=== PATIENT | female | born 1970 | race Caucasian/White ===

== ENCOUNTER 2016-11-16 13:03 | Emergency (ER) | payer OTHER ==
[~2016-11-16] VITALS: Ht 162.5 cm; Wt 68.0 kg
[~2016-11-16 13:03] MED LIST: ALDACTONE25 MG PO; AMOXICILLIN500 MG PO; ANAPROX DS550 MG PO; ASPIRIN ADULT L81 M1 PO; CIPRO500 MG PO; CIPROFLOXACIN500 MG PO; CLARITIN10 MG PO; CLEOCIN150 MG PO; CLINDAMYCIN HC300 MG PO; CLINDAMYCIN150 MG PO; CLOPIDOGREL75 MG PO; DARVOCET N 1001 TAB PO; FLAGYL500 MG PO; FLEXERIL10 MG PO; GABAPENTIN100 M2 PO; GABAPENTIN100 MG PO; HYDROCODONE BIT1 T11 PO; IBU-8800 MG PO; LIDEX0.05% T; LISINOPRIL20 MG PO; Lopressor25 MG PO; MACROBID100 M1 PO; MEDROL DOSEPAK4 MG PO; METOPROLOL SUCC25 M2 PO; MOTRIN400 MG PO; MOTRIN800 MG PO; NAPROSYN500 MG PO; NEURONTIN300 MG PO; NORFLEX100 MG PO; OMEGA-3100 MG PO; OXYCODONE5 M1 PO; PENICILLIN VK500 MG PO; PEPCID20 MG PO; PHENERGAN25 M1 PO; PREDNICOT20 MG PO; PREMARIN PO; PRILOSEC20 M1 PO; PRILOSEC40 M1 PO; PROTONIX40 MG PO; Peridex 473 ML473 ML PO; SEPTRA DS 800 M1 TAB PO; TOPROL XL100 MG PO; TORADOL10 MG PO; TRAMADOL HCL50 MG PO; TRIMOX500 MG PO; ULTRAM50 MG PO; VALIUM10 MG PO; VALIUM5 MG PO; VIBRAMYCIN100 MG PO; VICODIN 5/500 505 MG PO; VICODIN 500 MG-1 TAB PO; XANAX0.25 MG PO; ZOFRAN ODT4 MG SL; ZOFRAN4 MG PO
[2016-11-16] MEDS ORDERED: HYDROCODONE BIT1 T11 PO (13:20)
[2016-11-16] MEDS ORDERED: CYCLOBENZAPRINE10 MG PO (13:26)
[2016-11-16] MEDS ORDERED: MEDROL DOSEPAK4 MG PO (13:26)
[2016-11-16 14:24] VITALS: BP 129/93
== END 2016-11-16 15:02 | disposition home or self-care (01) ==
LOC: ED 13:03
DX: S29.011A Strain of muscle and tendon of front wall of thorax, initial encounter (principal); F17.200 Nicotine dependence, unspecified, uncomplicated; Z98.51 Tubal ligation status; Z90.710 Acquired absence of both cervix and uterus; Z79.899 Other long term (current) drug therapy; Z79.82 Long term (current) use of aspirin; Z88.8 Allergy status to other drugs, medicaments and biological substances; Z88.2 Allergy status to sulfonamides; X58.XXXA Exposure to other specified factors, initial encounter; Y93.89 Activity, other specified; Y92.89 Other specified places as the place of occurrence of the external cause; Y99.9 Unspecified external cause status

== ENCOUNTER 2016-11-21 00:45 | Emergency (ER) | payer OTHER ==
[~2016-11-21] VITALS: Ht 162.5 cm; Wt 59.0 kg
[~2016-11-21 00:45] MED LIST changes: +CYCLOBENZAPRINE10 MG PO
[2016-11-21 01:11] LABS: BASO # 0.1 10*3/uL (0.0-0.1); BASO % 0.5 % (0.0-1.0); EOS # 0.1 10*3/uL (0.0-0.4); EOS % 1.2 % (1.0-4.0); HEMATOCRIT 38.6 % (37.0-47.0); HEMOGLOBIN 12.8 g/dl (12.0-16.0); LYMPH % 17.8 % (27.0-41.0); MEAN CORPUSCULAR HGB 29.8 pg (27.0-31.0); MEAN CORPUSCULAR HGB CONC 33.2 g/dl (33.0-37.0); MONO # 0.7 10*3/uL (0.1-1.0); MONO % 6.2 % (3.0-9.0); NEUT # 8.3 10*3/uL (2.3-7.9); NEUT % 73.9 % (47.0-73.0); PLATELET COUNT AUTOMATED 282 10*3/uL (130-400); RED BLOOD COUNT 4.29 10*6/uL (4.10-5.10); RED CELL DISTRI WIDTH 14.5 % (0-14.5); WHITE BLOOD COUNT 11.2 10*3/uL (4.8-10.8)
[2016-11-21 01:21] LABS: PROTHROMBIN TIME 10.3 SECONDS (9.0-12.4)
[2016-11-21 01:27] LABS: ALBUMIN 3.8 gm/dl (3.1-4.5); ALKALINE PHOSPHATASE 73 U/L (45-117); B-hCG (QUALITATIVE) NEGATIVE (NEGATIVE); BILIRUBIN, TOTAL 0.3 mg/dl (0.2-1.0); BUN 17 mg/dl (7-24); CARBON DIOXIDE 28 mmol/L (21-32); CHLORIDE 101 mmol/L (98-107); CKMB 2.4 ng/ml (0.5-3.6); CPK 134 U/L (26-192); EST GLOM FILT AFRICAN AMERICAN 33 ml/min; GLUCOSE 104 mg/dL (65-99); POTASSIUM 3.8 mmol/L (3.5-5.1); SGOT/AST 18 IU/L (3-35); SGPT/ALT 20 U/L (12-78); SODIUM 137 mmol/L (136-145); TOTAL PROTEIN 8.2 gm/dL (6.4-8.2); TROPONIN I < 0.015 ng/ml (<0.045)
[2016-11-21 01:30] VITALS: BP 128/89
[2016-11-21 01:30] LABS: BILIRUBIN 1+ (NEGATIVE); BLOOD TRACE-INTACT (NEGATIVE); CLARITY SL CLOUDY (CLEAR); COLOR YELLOW (YELLOW); GLUCOSE NEGATIVE (NEGATIVE); KETONE TRACE (NEGATIVE); LEUKO ESTERASE TRACE (NEGATIVE); NITRITE NEGATIVE (NEGATIVE); PH 5.5 (5.0-9.0); PROTEIN 2+ (NEGATIVE); SPECIFIC GRAVITY 1.025 (1.005-1.030)
[2016-11-21 01:39] LABS: BACTERIA TRACE; EPITHELIAL CELLS 35-40
== END 2016-11-21 02:25 | disposition home or self-care (01) ==
LOC: ED 00:45
PROVIDERS: Emergency Medicine
DX: T50.901A Poisoning by unspecified drugs, medicaments and biological substances, accidental (unintentional), initial encounter (principal); R55 Syncope and collapse; I21.4 Non-ST elevation (NSTEMI) myocardial infarction; Z79.82 Long term (current) use of aspirin; Z88.2 Allergy status to sulfonamides; Z88.8 Allergy status to other drugs, medicaments and biological substances; Y92.9 Unspecified place or not applicable

== ENCOUNTER 2017-01-14 12:36 | Inpatient (IN) | payer OTHER ==
[~2017-01-14] VITALS: Ht 162.5 cm; Wt 64.9 kg
--- NOTE | ~2017-01-14 | EKG ---
[place], [place] ELECTROCARDIOGRAM REPORT NAME: BRENNA SOLANO UNIT #: [id number] ROOM: 511 DOCTOR: MICHAEL TAY MD BIRTHDATE: [birth year] DOS: 01/14/2017 ____ FINDINGS: 1. Normal sinus rhythm. 2. Normal axis. 3. Normal intervals. 4. Nonspecific ST-T wave changes. MICHAEL TAY MD CM:EKGRPT:ELECTROCARDIOGRAM REPORT [id number] MICHAEL TAY MD
[2017-01-14 12:49] VITALS: BP 139/101
[2017-01-14 13:07] VITALS: BP 171/98
[2017-01-14 13:26] LABS: BASO # 0.1 10*3/uL (0.0-0.1); BASO % 0.8 % (0.0-1.0); EOS # 0.1 10*3/uL (0.0-0.4); HEMOGLOBIN 14.6 g/dl (12.0-16.0); LYMPH # 3.2 10*3/uL (1.3-4.4); LYMPH % 35.4 % (27.0-41.0); MEAN CORPUSCULAR HGB 30.2 pg (27.0-31.0); MONO # 0.3 10*3/uL (0.1-1.0); MONO % 3.5 % (3.0-9.0); NEUT # 5.3 10*3/uL (2.3-7.9); PLATELET COUNT AUTOMATED 297 10*3/uL (130-400); RED BLOOD COUNT 4.83 10*6/uL (4.10-5.10); RED CELL DISTRI WIDTH 13.7 % (0-14.5); WHITE BLOOD COUNT 8.9 10*3/uL (4.8-10.8)
[2017-01-14] MEDS ORDERED: VALIUM10 MG PO (13:31)
[2017-01-14 13:35] LABS: PROTHROMBIN TIME 10.1 SECONDS (9.0-12.4)
[2017-01-14 13:44] LABS: ALKALINE PHOSPHATASE 77 U/L (45-117); BILIRUBIN, TOTAL 0.3 mg/dl (0.2-1.0); BUN 9 mg/dl (7-24); CARBON DIOXIDE 25 mmol/L (21-32); CHLORIDE 108 mmol/L (98-107); CPK 37 U/L (26-192); EST GLOM FILT AFRICAN AMERICAN > 60 ml/min; GLUCOSE 89 mg/dL (65-99); MAGNESIUM 2.1 mg/dL (1.5-2.1); POTASSIUM 3.8 mmol/L (3.5-5.1); SGOT/AST 14 IU/L (3-35); SGPT/ALT 19 U/L (12-78); SODIUM 142 mmol/L (136-145); TOTAL PROTEIN 8.4 gm/dL (6.4-8.2)
[2017-01-14 13:53] LABS: CKMB < 0.5 ng/ml (0.5-3.6); TROPONIN I < 0.015 ng/ml (<0.045)
[2017-01-14 15:33] VITALS: BP 132/70
[2017-01-14 17:12] VITALS: BP 125/84
[2017-01-14] MEDS ORDERED: Lopressor25 MG PO (17:33)
[2017-01-14 19:22] LABS: CPK 31 U/L (26-192)
[2017-01-14 19:25] LABS: CKMB < 0.5 ng/ml (0.5-3.6); TROPONIN I < 0.015 ng/ml (<0.045)
== END 2017-01-14 19:33 | disposition left against medical advice (07) | DRG 391 ==
LOC: ED 12:36 → EDHOLD 16:25 → 5E 16:46
PROVIDERS: Internal Medicine Hospice and Palliative Medicine; Registered Nurse
DX: K21.9 Gastro-esophageal reflux disease without esophagitis (principal); I21.3 ST elevation (STEMI) myocardial infarction of unspecified site; R09.1 Pleurisy; R07.89 Other chest pain; G62.9 Polyneuropathy, unspecified; F32.9 Major depressive disorder, single episode, unspecified; I25.2 Old myocardial infarction; I25.10 Atherosclerotic heart disease of native coronary artery without angina pectoris; F41.1 Generalized anxiety disorder; G89.29 Other chronic pain; F17.210 Nicotine dependence, cigarettes, uncomplicated; Z53.21 Procedure and treatment not carried out due to patient leaving prior to being seen by health care provider; M54.2 Cervicalgia; R45.1 Restlessness and agitation; Z71.6 Tobacco abuse counseling; Z90.710 Acquired absence of both cervix and uterus; Z98.51 Tubal ligation status; Z88.2 Allergy status to sulfonamides; Z95.5 Presence of coronary angioplasty implant and graft; Z88.1 Allergy status to other antibiotic agents; Z88.8 Allergy status to other drugs, medicaments and biological substances

== ENCOUNTER → 2017-01-14 | Outpatient (CLI) | payer OTHER ==
[2017-01-14 10:18] LABS: BASO # 0.1 10*3/uL (0.0-0.1); BASO % 0.6 % (0.0-1.0); EOS # 0.2 10*3/uL (0.0-0.4); EOS % 1.6 % (1.0-4.0); HEMATOCRIT 44.9 % (37.0-47.0); LYMPH # 2.8 10*3/uL (1.3-4.4); LYMPH % 28.8 % (27.0-41.0); MEAN CELL VOLUME 90.7 fl (81.0-99.0); MEAN CORPUSCULAR HGB 30.3 pg (27.0-31.0); MEAN CORPUSCULAR HGB CONC 33.4 g/dl (33.0-37.0); MEAN PLATELET VOLUME 10.6 fl (9.6-12.3); MONO # 0.4 10*3/uL (0.1-1.0); MONO % 3.8 % (3.0-9.0); NEUT # 6.3 10*3/uL (2.3-7.9); NEUT % 64.8 % (47.0-73.0); PLATELET COUNT AUTOMATED 321 10*3/uL (130-400); RED BLOOD COUNT 4.95 10*6/uL (4.10-5.10); RED CELL DISTRI WIDTH 13.9 % (0-14.5); WHITE BLOOD COUNT 9.7 10*3/uL (4.8-10.8)
[2017-01-14 10:43] LABS: BUN 11 mg/dl (7-24); EST GLOM FILT AFRICAN AMERICAN > 60 ml/min; GLUCOSE 99 mg/dL (65-99)
[2017-01-14 10:44] LABS: ALBUMIN 3.9 gm/dl (3.1-4.5); ALKALINE PHOSPHATASE 86 U/L (45-117); BILIRUBIN, TOTAL 0.3 mg/dl (0.2-1.0); CARBON DIOXIDE 26 mmol/L (21-32); CHLORIDE 105 mmol/L (98-107); CHOLESTEROL 248 mg/dL (<200); HDL CHOLESTEROL 40 mg/dl (40-60); LDL CHOLESTEROL 166 mg/dL (9-159); POTASSIUM 4.6 mmol/L (3.5-5.1); SGOT/AST 15 IU/L (3-35); SGPT/ALT 20 U/L (12-78); SODIUM 139 mmol/L (136-145); TRIGLYCERIDES 209 mg/dl (<150); VLDL CHOLESTEROL 42 mg/dL (6-40)
[2017-01-14 10:50] LABS: THYROID STIM HORMONE (HS) 0.495 uIU/ml (0.358-4.75)
[2017-01-15 16:11] LABS: CK-BB 0 % (0); CK-MB 0 % (0-3); CK-MM 100 % (97-100)
== END | disposition home or self-care (01) ==
LOC: LAB 09:39
PROVIDERS: Internal Medicine
DX: G40.909 Epilepsy, unspecified, not intractable, without status epilepticus (principal); K70.30 Alcoholic cirrhosis of liver without ascites; I25.84 Coronary atherosclerosis due to calcified coronary lesion; I10 Essential (primary) hypertension

== ENCOUNTER 2017-02-08 20:50 | Inpatient (IN) | payer OTHER ==
[~2017-02-08] VITALS: Ht 162.6 cm; Wt 67.3 kg
--- NOTE | ~2017-02-08 | ST ---
[place], [place] EXERCISE STRESS TEST REPORT NAME: BRENNA SOLANO UNIT #: [id number] ROOM: 408 DOCTOR: AUGUSTIN CABRERA [facility] BIRTHDATE: [birth year] DOS: 02/09/2017 Received Lexiscan 0.4 mg at 10 seconds. Isotope was injected. Heart rate is 70. No conclusive electrocardiographic changes for myocardial ischemia noted. No complications noted. Myocardial perfusion scan to follow. INDER RUFFIN MD CM:STRESS:EXERCISE STRESS TEST REPORT 0705 0813 KARYN ALLAN MD [facility]
--- NOTE | ~2017-02-08 | CON ---
[place], [place] REPORT OF CONSULTATION NAME: BRENNA SOLANO UNIT #: [id number] ROOM: 408 DOCTOR: INDER RUFFIN MD, FACC BIRTHDATE: [birth year] DOS: 02/09/2017 HISTORY OF PRESENT ILLNESS: The patient came in with progressive chest discomfort, history of coronary artery disease, coronary intervention few times within the last couple of years, last one was in last 03/2016. The patient smokes more than a pack a day, the patient has had 2 stents in. The patient has a history of myocardial infarction in the past and the patient had a history of stress test in the past. The patient has history of hypertension. No syncope or presyncope. History of chronic smoking. The patient also has depression, on Prozac, also on Ultram, Librax, inhalers. ALLERGIES: IODINE, SULFA, SHELLFISH. SOCIAL HISTORY: No alcohol intake, no drugs. REVIEW OF SYSTEMS: HEENT: Unremarkable. CARDIOPULMONARY: As described. GASTROINTESTINAL: Unremarkable. GENITOURINARY: Unremarkable. NEUROLOGICAL: History of depression and extremely anxious. PHYSICAL EXAMINATION: VITAL SIGNS: Blood pressure 130/80, heart rate is 70. NECK: No jugular venous distention. No carotid bruits. LUNGS: No rales. Diminished breath sounds in base bibasilar rhonchi. HEART: S1, S2 regular. No gallops. EXTREMITIES: No cyanosis. ABDOMEN: Soft. SKIN: Warm and dry. NECK: Supple. NEUROLOGICAL: No focal neurological deficit noted. LABORATORY DATA: EKG sinus rhythm. No acute changes noted. Poor R-wave progress in the precordial leads. ASSESSMENT AND PLAN: The patient underwent Lexiscan with Cardiolite to evaluate for ischemic heart disease and myocardial perfusion scan is pending. If it is abnormal, may consider coronary arteriography, possible revascularization. If it is unremarkable, we will continue with the conservative medical therapy. [place], [place] REPORT OF CONSULTATION NAME: BRENNA SOLANO UNIT #: [id number] ROOM: 408 DOCTOR: INDER RUFFIN MD, FACC BIRTHDATE: [birth year] INDER RUFFIN MD CM:CONSTR:REPORT OF CONSULTATION 0708 02/09/17 1056 interface
[2017-02-08 20:58] VITALS: BP 175/136; BP 175/81
[2017-02-08 21:06] LABS: BASO # 0.1 10*3/uL (0.0-0.1); EOS # 0.3 10*3/uL (0.0-0.4); EOS % 2.5 % (1.0-4.0); HEMATOCRIT 41.7 % (37.0-47.0); HEMOGLOBIN 14.5 g/dl (12.0-16.0); LYMPH # 3.7 10*3/uL (1.3-4.4); LYMPH % 35.6 % (27.0-41.0); MEAN CELL VOLUME 88.2 fl (81.0-99.0); MEAN CORPUSCULAR HGB 30.7 pg (27.0-31.0); MEAN CORPUSCULAR HGB CONC 34.8 g/dl (33.0-37.0); MEAN PLATELET VOLUME 9.6 fl (9.6-12.3); MONO # 0.5 10*3/uL (0.1-1.0); MONO % 4.7 % (3.0-9.0); NEUT # 5.9 10*3/uL (2.3-7.9); NEUT % 55.8 % (47.0-73.0); PLATELET COUNT AUTOMATED 348 10*3/uL (130-400); RED BLOOD COUNT 4.73 10*6/uL (4.10-5.10); RED CELL DISTRI WIDTH 13.6 % (0-14.5); WHITE BLOOD COUNT 10.5 10*3/uL (4.8-10.8)
[2017-02-08 21:15] VITALS: BP 127/86
[2017-02-08 21:16] LABS: INTERNATIONAL NORM RATIO 0.9 (2.0-3.5); PROTHROMBIN TIME 9.7 SECONDS (9.0-12.4)
[2017-02-08 21:24] LABS: ALBUMIN 3.5 gm/dl (3.1-4.5); ALKALINE PHOSPHATASE 78 U/L (45-117); BILIRUBIN, TOTAL 0.2 mg/dl (0.2-1.0); BUN 11 mg/dl (7-24); CARBON DIOXIDE 20 mmol/L (21-32); CHLORIDE 101 mmol/L (98-107); EST GLOM FILT AFRICAN AMERICAN > 60 ml/min; GLUCOSE 100 mg/dL (65-99); POTASSIUM 3.6 mmol/L (3.5-5.1); SGOT/AST 15 IU/L (3-35); SGPT/ALT 22 U/L (12-78); SODIUM 136 mmol/L (136-145); TOTAL PROTEIN 8.5 gm/dL (6.4-8.2); TROPONIN I < 0.015 ng/ml (<0.045)
[2017-02-08 22:29] LABS: CPK 35 U/L (26-192)
[2017-02-08 22:30] VITALS: BP 116/71
[2017-02-08 22:30] LABS: CKMB < 0.5 ng/ml (0.5-3.6)
[2017-02-08 22:44] VITALS: BP 116/71
[2017-02-09] VITALS: BP 118/72
[2017-02-09 00:28] LABS: CKMB < 0.5 ng/ml (0.5-3.6); CPK 42 U/L (26-192)
[2017-02-09 03:38] LABS: BASO # 0.1 10*3/uL (0.0-0.1); BASO % 0.6 % (0.0-1.0); EOS # 0.3 10*3/uL (0.0-0.4); EOS % 3.5 % (1.0-4.0); HEMATOCRIT 40.2 % (37.0-47.0); HEMOGLOBIN 13.5 g/dl (12.0-16.0); IG # 0.1 10*3/uL (0.0-0.1); LYMPH # 3.7 10*3/uL (1.3-4.4); LYMPH % 39.1 % (27.0-41.0); MEAN CELL VOLUME 88.9 fl (81.0-99.0); MEAN CORPUSCULAR HGB 29.9 pg (27.0-31.0); MEAN CORPUSCULAR HGB CONC 33.6 g/dl (33.0-37.0); MEAN PLATELET VOLUME 9.5 fl (9.6-12.3); MONO # 0.5 10*3/uL (0.1-1.0); MONO % 5.1 % (3.0-9.0); NEUT # 4.9 10*3/uL (2.3-7.9); NEUT % 51.2 % (47.0-73.0); PLATELET COUNT AUTOMATED 324 10*3/uL (130-400); RED BLOOD COUNT 4.52 10*6/uL (4.10-5.10); RED CELL DISTRI WIDTH 13.9 % (0-14.5); WHITE BLOOD COUNT 9.5 10*3/uL (4.8-10.8)
[2017-02-09 03:48] LABS: INTERNATIONAL NORM RATIO 0.9 (2.0-3.5); PROTHROMBIN TIME 9.7 SECONDS (9.0-12.4)
[2017-02-09 03:53] LABS: ALBUMIN 3.2 gm/dl (3.1-4.5); ALKALINE PHOSPHATASE 69 U/L (45-117); BILIRUBIN, TOTAL 0.2 mg/dl (0.2-1.0); BUN 15 mg/dl (7-24); CARBON DIOXIDE 25 mmol/L (21-32); CHLORIDE 103 mmol/L (98-107); CHOLESTEROL 253 mg/dL (<200); EST GLOM FILT AFRICAN AMERICAN > 60 ml/min; GLUCOSE 95 mg/dL (65-99); HDL CHOLESTEROL 27 mg/dl (40-60); LDL CHOLESTEROL 171 mg/dL (9-159); MAGNESIUM 2.1 mg/dL (1.5-2.1); PHOSPHOROUS 3.9 mg/dL (2.5-4.9); POTASSIUM 4.3 mmol/L (3.5-5.1); SGOT/AST 12 IU/L (3-35); SGPT/ALT 17 U/L (12-78); SODIUM 140 mmol/L (136-145); TOTAL PROTEIN 7.5 gm/dL (6.4-8.2); TRIGLYCERIDES 276 mg/dl (<150); VLDL CHOLESTEROL 55 mg/dL (6-40)
[2017-02-09 03:54] LABS: HEMOGLOBIN A1c 5.6 % (4.8-5.6)
[2017-02-09 03:55] LABS: FREE T4 1.14 ng/dl (0.76-1.46)
[2017-02-09 03:57] LABS: CKMB < 0.5 ng/ml (0.5-3.6); CPK 28 U/L (26-192)
[2017-02-09 03:59] LABS: THYROID STIM HORMONE (HS) 0.904 uIU/ml (0.358-4.75)
[2017-02-09 06:21] LABS: FOLIC ACID 8.84 ng/mL (>5.38); VITAMIN D, 25-HYDROXY 18.2 ng/mL (30-100)
[2017-02-09 08:00] VITALS: BP 119/79
[2017-02-09 12:00] VITALS: BP 110/66
[2017-02-09] MEDS ORDERED: ATORVASTATIN CA40 M1 PO (14:24)
[2017-02-09] MEDS ORDERED: AMLODIPINE BESYL5 MG PO (14:24)
[2017-02-09 16:00] VITALS: BP 136/76
[2017-02-09 20:00] VITALS: BP 109/74
[2017-02-10] VITALS: BP 128/87
== END 2017-02-10 05:28 | disposition other institution (70) | DRG 305 ==
LOC: ED 20:50 → 4E 21:37 → EDHOLD 21:37 → 4E 21:56
PROVIDERS: Emergency Medicine Emergency Medical Services; Internal Medicine
PROC: 4A02XM4 Measurement of Cardiac Total Activity, External Approach (ICD-10-PCS; principal; 2017-02-09)
PROC: 3E033HZ Introduction of Radioactive Substance into Peripheral Vein, Percutaneous Approach (ICD-10-PCS; 2017-02-09)
DX: I16.1 Hypertensive emergency (principal); I73.1 Thromboangiitis obliterans [Buerger's disease]; R07.89 Other chest pain; I25.2 Old myocardial infarction; I25.10 Atherosclerotic heart disease of native coronary artery without angina pectoris; F17.210 Nicotine dependence, cigarettes, uncomplicated; E78.5 Hyperlipidemia, unspecified; E55.9 Vitamin D deficiency, unspecified; Z90.710 Acquired absence of both cervix and uterus; Z90.721 Acquired absence of ovaries, unilateral; Z98.51 Tubal ligation status; Z82.49 Family history of ischemic heart disease and other diseases of the circulatory system; Z95.818 Presence of other cardiac implants and grafts; Z88.2 Allergy status to sulfonamides; Z91.048 Other nonmedicinal substance allergy status; Z91.041 Radiographic dye allergy status; Z88.8 Allergy status to other drugs, medicaments and biological substances; Z83.3 Family history of diabetes mellitus; Z80.9 Family history of malignant neoplasm, unspecified; Z79.82 Long term (current) use of aspirin; Z79.899 Other long term (current) drug therapy; Z71.6 Tobacco abuse counseling; Z91.013 Allergy to seafood; G89.29 Other chronic pain; G62.9 Polyneuropathy, unspecified; F32.9 Major depressive disorder, single episode, unspecified

== ENCOUNTER → 2017-03-05 | Outpatient (CLI) | payer OTHER ==
[~2017-03-05] MED LIST changes: +AMLODIPINE BESYL5 MG PO; +ATORVASTATIN CA40 M1 PO
== END | disposition home or self-care (01) ==
LOC: RAD 12:52
DX: M47.817 Spondylosis without myelopathy or radiculopathy, lumbosacral region (principal); M51.37 Other intervertebral disc degeneration, lumbosacral region; R20.0 Anesthesia of skin

== ENCOUNTER → 2017-10-12 | Outpatient (CLI) | payer OTHER ==
[2017-10-12 09:18] LABS: BASO # 0.1 10*3/uL (0.0-0.1); BASO % 0.8 % (0.0-1.0); EOS # 0.2 10*3/uL (0.0-0.4); EOS % 2.9 % (1.0-4.0); HEMATOCRIT 37.6 % (37.0-47.0); HEMOGLOBIN 12.4 g/dl (12.0-16.0); LYMPH # 2.4 10*3/uL (1.3-4.4); LYMPH % 32.7 % (27.0-41.0); MEAN PLATELET VOLUME 10.1 fl (9.6-12.3); MONO # 0.5 10*3/uL (0.1-1.0); MONO % 6.4 % (3.0-9.0); NEUT # 4.1 10*3/uL (2.3-7.9); NEUT % 57.1 % (47.0-73.0); PLATELET COUNT AUTOMATED 192 10*3/uL (130-400); RED BLOOD COUNT 4.13 10*6/uL (4.10-5.10); RED CELL DISTRI WIDTH 14.1 % (0-14.5); WHITE BLOOD COUNT 7.2 10*3/uL (4.8-10.8)
[2017-10-12 09:46] LABS: ALBUMIN 3.2 gm/dl (3.1-4.5); BUN 18 mg/dl (7-24); CHLORIDE 101 mmol/L (98-107); POTASSIUM 4.9 mmol/L (3.5-5.1); SODIUM 136 mmol/L (136-145)
[2017-10-12 09:58] LABS: ALKALINE PHOSPHATASE 86 U/L (45-117); CHOLESTEROL 209 mg/dL (<200); CREATININE 1.11 mg/dL (0.55-1.02); HDL CHOLESTEROL 36 mg/dl (40-60); LDL CHOLESTEROL 137 mg/dL (9-159); SGOT/AST 37 IU/L (3-35); SGPT/ALT 27 U/L (12-78); THYROID STIM HORMONE (HS) 0.855 uIU/ml (0.358-4.75); TOTAL PROTEIN 7.3 gm/dL (6.4-8.2); TRIGLYCERIDES 179 mg/dl (<150); VLDL CHOLESTEROL 36 mg/dL (6-40)
== END | disposition home or self-care (01) ==
LOC: LAB 08:53
PROVIDERS: Internal Medicine
DX: I10 Essential (primary) hypertension (principal); I25.84 Coronary atherosclerosis due to calcified coronary lesion

== ENCOUNTER → 2017-11-02 | Outpatient (CLI) | payer OTHER | END | disposition home or self-care (01) | LOC: RAD 09:43 | DX: M47.896 Other spondylosis, lumbar region (principal) ==

== ENCOUNTER 2017-11-08 21:41 | Inpatient (IN) | payer OTHER ==
[~2017-11-08] VITALS: Ht 162.5 cm; Wt 64.9 kg
--- NOTE | ~2017-11-08 | CON ---
[place], [place] REPORT OF CONSULTATION NAME: BRENNA SOLANO UNIT #: [id number] ROOM: 405 [facility] [birth year] DOS: 11/10/2017 CARDIOLOGY CONSULTATION HISTORY OF PRESENT ILLNESS: The patient is a 47-year-old female who came with severe precordial chest pressure, history of coronary artery disease, and coronary intervention with stenting in the past. She started having this pain early a.m. yesterday. History of questionable loss of consciousness and admitted with some confusion. Her boyfriend brought her over. She has a history of epilepsy in the past. The patient has recurrent chest discomfort, progressively increasing. The patient is getting no ____ apparently not happy with the current pain medication. The patient had a coronary stent placed and she was at . ____ prior to that due to abnormal labs found in the ED and had a coronary stent placed in that facility. The patient refused Nitro rather have the pain medication. Chest x-ray unremarkable. CT scan of the chest, abnormal chronic changes in the chest and in the lungs. PAST MEDICAL HISTORY: The patient has a history of alcohol cirrhosis of the liver, coronary artery disease, coronary stenting, depression, history of seizure disorder, history of hypertension, neuropathy, and non-ST elevation myocardial infarction in the past. PAST SURGICAL HISTORY: The patient has a history of hysterectomy, and oophorectomy. SOCIAL HISTORY: Tobacco abuse about 2 packs a day. History of alcohol abuse in the past. She smokes about a pack since age of 14. Two packs time to time. FAMILY HISTORY: Father of myocardial infarction. Mother of myocardial infarction. Brother is 43 and had myocardial infarction. ALLERGIES: THE PATIENT IS ALLERGIC TO SULFA, LIBRAX, IODINE, AND BETADINE SOAK. MEDICATIONS: The patient is on aspirin, clopidogrel, diazepam, gabapentin, lisinopril, metoprolol, and also trazodone 100 mg at bedtime. PHYSICAL EXAMINATION: VITAL SIGNS: Stable, alert. SKIN: Warm, not diaphoretic. LUNGS: No rales. With minimal basal crepitations. HEART: S1, S2 regular. No gallops. ABDOMEN: Soft. VITAL SIGNS: Blood pressure 114/62, heart rate 75, afebrile. Pulse ox is 95 at room air. RECTAL, GENITAL, AND BREASTS: Deferred unrelated. DIAGNOSTIC DATA: No acute changes in the EKG. IMPRESSION: Crescendo angina, history of coronary stenting, and hypertension. [place], [place] REPORT OF CONSULTATION NAME: BRENNA SOLANO UNIT #: [id number] ROOM: 405 DOCTOR: AUGUSTIN CABRERA [facility] BIRTHDATE: [birth year] PLAN: Lexiscan with Cardiolite to evaluate for ischemic heart disease. If it is abnormal, we may consider coronary artery with possible revascularization, otherwise conservative medical therapy. Thank you very much for asking me to see the patient. I will follow the patient. INDER RUFFIN MD CM:CONSTR:REPORT OF CONSULTATION 0733 11/10/17 1401 interface BRIELLE CHAVIS DO and ROME CARTER DO
--- NOTE | ~2017-11-08 | ST ---
[place], [place] EXERCISE STRESS TEST REPORT NAME: BRENNA SOLANO UNIT #: [id number] ROOM: 405 DOCTOR: AUGUSTIN CABRERA [facility] BIRTHDATE: [birth year] DOS: 11/10/2017 LEXISCAN WITH CARDIOLITE The patient received Lexiscan 0.4 mg over 10 seconds. Isotope was injected. Heart rate is 96. No ischemic change in the EKG. The patient has some chest discomfort and dyspnea and no complication noted. Myocardial perfusion scan to follow. INDER RUFFIN MD CM:STRESS:EXERCISE STRESS TEST REPORT 0707 0729 INDER RUFFIN MD [facility]
--- NOTE | ~2017-11-08 | EKG ---
[place], [place] ELECTROCARDIOGRAM REPORT NAME: BRENNA SOLANO UNIT #: [id number] ROOM: 405 DOCTOR: AUGUSTIN CABRERA [facility],[place] BIRTHDATE: [birth year] DOS: 11/09/2017 TRACING TIME: 0030 hours. CONCLUSION: 1. Sinus. 2. Cannot exclude old inferior wall infarction. INDER RUFFIN MD CM:EKGRPT:ELECTROCARDIOGRAM REPORT 0743 0937 INDER RUFFIN MD [facility]
--- NOTE | ~2017-11-08 | EKG ---
[place], [place] ELECTROCARDIOGRAM REPORT NAME: BRENNA SOLANO UNIT #: [id number] ROOM: 405 DOCTOR: AUGUSTIN CABRERA [facility] BIRTHDATE: [birth year] DOS: 11/08/2017 TRACING TIME: 2139 hours. CONCLUSION: 1. Sinus tachycardia. 2. Cannot exclude old inferior wall infarction. INDER RUFFIN MD CM:EKGRPT:ELECTROCARDIOGRAM REPORT 0743 0939 INDER RUFIFN MD [facility]
--- NOTE | ~2017-11-08 | EKG ---
[place], [place] ELECTROCARDIOGRAM REPORT NAME: BRENNA SOLANO UNIT #: [id number] ROOM: 405 DOCTOR: AUGUSTIN CABRERA [facility] BIRTHDATE: [birth year] DOS: 11/09/2017 TRACING TIME: 0342 hours. CONCLUSION: 1. Sinus. 2. Cannot exclude old inferior wall infarction. INDER RUFFIN MD CM:EKGRPT:ELECTROCARDIOGRAM REPORT 0743 0936 INDER RUFFIN MD [facility]
[2017-11-08 21:42] VITALS: BP 148/121
[2017-11-08 21:47] VITALS: BP 142/92
[2017-11-08 21:57] LABS: BASO # 0.1 10*3/uL (0.0-0.1); BASO % 0.5 % (0.0-1.0); EOS # 0.1 10*3/uL (0.0-0.4); EOS % 0.5 % (1.0-4.0); HEMATOCRIT 38.6 % (37.0-47.0); LYMPH # 1.6 10*3/uL (1.3-4.4); MEAN CELL VOLUME 86.7 fl (81.0-99.0); MEAN CORPUSCULAR HGB 29.2 pg (27.0-31.0); MEAN CORPUSCULAR HGB CONC 33.7 g/dl (33.0-37.0); MEAN PLATELET VOLUME 9.8 fl (9.6-12.3); MONO # 0.7 10*3/uL (0.1-1.0); MONO % 7.7 % (3.0-9.0); NEUT # 6.8 10*3/uL (2.3-7.9); PLATELET COUNT AUTOMATED 220 10*3/uL (130-400); RED BLOOD COUNT 4.45 10*6/uL (4.10-5.10); RED CELL DISTRI WIDTH 13.7 % (0-14.5); WHITE BLOOD COUNT 9.2 10*3/uL (4.8-10.8)
[2017-11-08 22:15] LABS: ALBUMIN 3.4 gm/dl (3.1-4.5); ALKALINE PHOSPHATASE 72 U/L (45-117); BUN 9 mg/dl (7-24); CHLORIDE 101 mmol/L (98-107); CREATININE 1.02 mg/dL (0.55-1.02); POTASSIUM 3.4 mmol/L (3.5-5.1); SGOT/AST 12 IU/L (3-35); SGPT/ALT 17 U/L (12-78); SODIUM 135 mmol/L (136-145); TOTAL PROTEIN 8.1 gm/dL (6.4-8.2)
[2017-11-08 22:21] LABS: TROPONIN I < 0.015 ng/ml (<0.045)
[2017-11-08 22:34] LABS: ACT PARTIAL THROMBO TIME 23.5 SECONDS (20.8-31.5); INTERNATIONAL NORM RATIO 0.9 (2.0-3.5)
[2017-11-08 23:36] VITALS: BP 113/71
[2017-11-08 23:55] VITALS: BP 102/82
[2017-11-09] VITALS: BP 100/60; BP 114/62
[2017-11-09] MEDS ORDERED: ZOLOFT100 MG PO (00:48)
[2017-11-09] MEDS ORDERED: TRAZODONE100 MG PO (00:48)
[2017-11-09] MEDS ORDERED: INCRUSE ELLI62.5 MCG INH (00:50)
[2017-11-09 04:07] LABS: BASO % 0.5 % (0.0-1.0); EOS # 0.1 10*3/uL (0.0-0.4); EOS % 1.6 % (1.0-4.0); HEMATOCRIT 37.2 % (37.0-47.0); HEMOGLOBIN 12.4 g/dl (12.0-16.0); LYMPH # 1.8 10*3/uL (1.3-4.4); LYMPH % 24.2 % (27.0-41.0); MEAN CELL VOLUME 87.9 fl (81.0-99.0); MEAN CORPUSCULAR HGB 29.3 pg (27.0-31.0); MEAN CORPUSCULAR HGB CONC 33.3 g/dl (33.0-37.0); MEAN PLATELET VOLUME 9.8 fl (9.6-12.3); MONO # 0.6 10*3/uL (0.1-1.0); MONO % 7.9 % (3.0-9.0); NEUT # 4.9 10*3/uL (2.3-7.9); NEUT % 65.4 % (47.0-73.0); PLATELET COUNT AUTOMATED 206 10*3/uL (130-400); RED BLOOD COUNT 4.23 10*6/uL (4.10-5.10); WHITE BLOOD COUNT 7.5 10*3/uL (4.8-10.8)
[2017-11-09 04:23] LABS: ALBUMIN 3.2 gm/dl (3.1-4.5); ALKALINE PHOSPHATASE 68 U/L (45-117); BUN 11 mg/dl (7-24); CHLORIDE 102 mmol/L (98-107); CHOLESTEROL 205 mg/dL (<200); FREE T4 1.17 ng/dl (0.76-1.46); HDL CHOLESTEROL 23 mg/dl (40-60); LDL CHOLESTEROL 135 mg/dL (9-159); POTASSIUM 3.8 mmol/L (3.5-5.1); SGOT/AST 10 IU/L (3-35); SGPT/ALT 14 U/L (12-78); SODIUM 135 mmol/L (136-145); TOTAL PROTEIN 7.5 gm/dL (6.4-8.2); TRIGLYCERIDES 235 mg/dl (<150); VLDL CHOLESTEROL 47 mg/dL (6-40)
[2017-11-09 04:28] LABS: THYROID STIM HORMONE (HS) 0.179 uIU/ml (0.358-4.75)
[2017-11-09 08:00] VITALS: BP 110/57
[2017-11-09 08:14] LABS: VITAMIN D, 25-HYDROXY 9.6 ng/mL (30-100)
[2017-11-09 12:00] VITALS: BP 148/85
[2017-11-09 16:00] VITALS: BP 159/81
[2017-11-09 20:00] VITALS: BP 155/78
[2017-11-10] VITALS: BP 133/77
[2017-11-10 08:00] VITALS: BP 179/95
[2017-11-10 12:00] VITALS: BP 141/90
[2017-11-10 16:00] VITALS: BP 145/80
[2017-11-10] MEDS ORDERED: VITAMIN D50000 UNIT PO (16:08)
[2017-11-10] MEDS ORDERED: NATURE'S BLEND F1 MG PO (16:08)
[2017-11-10] MEDS ORDERED: SIMVASTATIN40 MG PO (16:08)
[2017-11-10] MEDS ORDERED: NAPROSYN500 MG PO (16:08)
== END 2017-11-10 16:35 | disposition home or self-care (01) | DRG 313 ==
LOC: ED 21:41 → EDHOLD 22:37 → 4E 22:37 → EDHOLD 22:54 → 4E 23:17
PROVIDERS: Internal Medicine; Student in an Organized Health Care Education/Training Program
PROC: 4A02XM4 Measurement of Cardiac Total Activity, External Approach (ICD-10-PCS; principal; 2017-11-10)
PROC: 3E073KZ Introduction of Other Diagnostic Substance into Coronary Artery, Percutaneous Approach (ICD-10-PCS; 2017-11-10)
DX: R07.89 Other chest pain (principal); I25.110 Atherosclerotic heart disease of native coronary artery with unstable angina pectoris; E83.41 Hypermagnesemia; I73.1 Thromboangiitis obliterans [Buerger's disease]; I50.32 Chronic diastolic (congestive) heart failure; E87.1 Hypo-osmolality and hyponatremia; G62.9 Polyneuropathy, unspecified; D53.8 Other specified nutritional anemias; I11.0 Hypertensive heart disease with heart failure; R55 Syncope and collapse; K70.30 Alcoholic cirrhosis of liver without ascites; K21.9 Gastro-esophageal reflux disease without esophagitis; E87.6 Hypokalemia; R73.9 Hyperglycemia, unspecified; R00.0 Tachycardia, unspecified; D72.9 Disorder of white blood cells, unspecified; D72.810 Lymphocytopenia; F41.1 Generalized anxiety disorder; G89.29 Other chronic pain; F32.9 Major depressive disorder, single episode, unspecified; E78.5 Hyperlipidemia, unspecified; F17.200 Nicotine dependence, unspecified, uncomplicated; G40.909 Epilepsy, unspecified, not intractable, without status epilepticus; Z71.6 Tobacco abuse counseling; Z90.710 Acquired absence of both cervix and uterus; Z90.722 Acquired absence of ovaries, bilateral; Z95.5 Presence of coronary angioplasty implant and graft; I25.2 Old myocardial infarction; Z82.49 Family history of ischemic heart disease and other diseases of the circulatory system; Z88.2 Allergy status to sulfonamides; Z88.8 Allergy status to other drugs, medicaments and biological substances; Z91.041 Radiographic dye allergy status; Z79.82 Long term (current) use of aspirin; Z79.899 Other long term (current) drug therapy

== ENCOUNTER 2018-01-11 08:06 | Emergency (ER) | payer OTHER ==
[~2018-01-11] VITALS: Ht 170.1 cm; Wt 65.8 kg
[~2018-01-11 08:06] MED LIST changes: +INCRUSE ELLI62.5 MCG INH; +NATURE'S BLEND F1 MG PO; +SIMVASTATIN40 MG PO; +TRAZODONE100 MG PO; +VITAMIN D50000 UNIT PO; +ZOLOFT100 MG PO
[2018-01-11 08:44] LABS: BASO # 0.1 10*3/uL (0.0-0.1); BASO % 0.7 % (0.0-1.0); EOS # 0.1 10*3/uL (0.0-0.4); EOS % 0.7 % (1.0-4.0); HEMATOCRIT 39.5 % (37.0-47.0); HEMOGLOBIN 12.8 g/dl (12.0-16.0); LYMPH # 2.2 10*3/uL (1.3-4.4); LYMPH % 18.9 % (27.0-41.0); MEAN CELL VOLUME 87.2 fl (81.0-99.0); MEAN CORPUSCULAR HGB 28.3 pg (27.0-31.0); MEAN CORPUSCULAR HGB CONC 32.4 g/dl (33.0-37.0); MEAN PLATELET VOLUME 9.8 fl (9.6-12.3); MONO # 0.5 10*3/uL (0.1-1.0); MONO % 4.7 % (3.0-9.0); NEUT # 8.6 10*3/uL (2.3-7.9); NEUT % 74.6 % (47.0-73.0); PLATELET COUNT AUTOMATED 230 10*3/uL (130-400); RED BLOOD COUNT 4.53 10*6/uL (4.10-5.10); RED CELL DISTRI WIDTH 15.2 % (0-14.5); WHITE BLOOD COUNT 11.5 10*3/uL (4.8-10.8)
[2018-01-11 09:00] LABS: ALBUMIN 3.6 gm/dl (3.1-4.5); ALKALINE PHOSPHATASE 96 U/L (45-117); BUN 8 mg/dl (7-24); CHLORIDE 100 mmol/L (98-107); CREATININE 1.03 mg/dL (0.55-1.02); SGOT/AST 12 IU/L (3-35); SGPT/ALT 16 U/L (12-78); SODIUM 135 mmol/L (136-145); TOTAL PROTEIN 8.6 gm/dL (6.4-8.2)
[2018-01-11 09:12] LABS: TROPONIN I < 0.015 ng/ml (<0.045)
[2018-01-11 09:15] VITALS: BP 94/70
[2018-01-11 10:00] LABS: BILIRUBIN NEGATIVE (NEGATIVE); BLOOD NEGATIVE (NEGATIVE); CLARITY CLEAR (CLEAR); COLOR YELLOW (YELLOW); GLUCOSE NEGATIVE (NEGATIVE); KETONE NEGATIVE (NEGATIVE); LEUKO ESTERASE NEGATIVE (NEGATIVE); NITRITE NEGATIVE (NEGATIVE); PH 5.5 (5.0-9.0); SPECIFIC GRAVITY <= 1.005 (1.005-1.030); UROBILINOGEN 0.2 E.U./dl (0.2-1.0)
[2018-01-11 10:07] LABS: URINE AMPHETAMINES < 1000 (1000ng/ml); URINE BARBITURATES < 200 (200ng/ml); URINE BENZODIAZEPINES > 200 (200ng/ml); URINE CANNABINOIDS (THC) < 50 (50ng/ml); URINE COCAINE < 300 (300ng/ml); URINE METHADONE < 300 (300ng/ml); URINE OPIATES < 300 (300ng/ml)
[2018-01-11 10:09] LABS: URINE PHENCYCLIDINE < 25 (25ng/ml)
[2018-01-11 10:12] LABS: BACTERIA TRACE
[2018-01-11] MEDS ORDERED: PERCOCET 10-321 EACH PO (11:13)
[2018-01-11] MEDS ORDERED: VIBRAMYCIN100 MG PO (11:13)
[2018-01-11] MEDS ORDERED: CLINDAMYCIN HC300 MG PO (11:13)
== END 2018-01-11 11:41 | disposition home or self-care (01) ==
LOC: ED 08:06
PROVIDERS: Student in an Organized Health Care Education/Training Program
DX: J18.9 Pneumonia, unspecified organism (principal); K04.7 Periapical abscess without sinus; K21.9 Gastro-esophageal reflux disease without esophagitis; I25.10 Atherosclerotic heart disease of native coronary artery without angina pectoris; I11.0 Hypertensive heart disease with heart failure; I50.32 Chronic diastolic (congestive) heart failure; F17.200 Nicotine dependence, unspecified, uncomplicated; G89.29 Other chronic pain; F41.1 Generalized anxiety disorder; Z90.710 Acquired absence of both cervix and uterus; Z90.721 Acquired absence of ovaries, unilateral

== ENCOUNTER → 2018-05-16 | Outpatient (CLI) | payer OTHER ==
[~2018-05-16] MED LIST changes: +PERCOCET 10-321 EACH PO
== END | disposition home or self-care (01) ==
LOC: RAD 14:02
DX: J43.1 Panlobular emphysema (principal); I11.0 Hypertensive heart disease with heart failure; I50.9 Heart failure, unspecified; R04.2 Hemoptysis; Z90.710 Acquired absence of both cervix and uterus; Z87.891 Personal history of nicotine dependence

== ENCOUNTER → 2018-06-09 | Outpatient (CLI) | payer OTHER | END | disposition home or self-care (01) | LOC: CT 09:30 | DX: R91.1 Solitary pulmonary nodule (principal); N20.0 Calculus of kidney; I25.10 Atherosclerotic heart disease of native coronary artery without angina pectoris; I70.0 Atherosclerosis of aorta; M47.897 Other spondylosis, lumbosacral region; Z95.5 Presence of coronary angioplasty implant and graft; Z90.710 Acquired absence of both cervix and uterus ==

== ENCOUNTER 2018-09-02 19:16 | Emergency (ER) | payer OTHER ==
[~2018-09-02] VITALS: Ht 160 cm; Wt 64.4 kg
--- NOTE | ~2018-09-02 | EKG ---
[place], [place] ELECTROCARDIOGRAM REPORT NAME: BRENNA SOLANO UNIT #: [id number] ROOM: DOCTOR: EPIPHANY DRAFT REPORT BIRTHDATE: [birth year] [facility] Test Date: 2018-09-02 Test Time: 19:48:04 Pat Name: BRENNA SOLANO Department: ER Room: 3 Gender: F Red Cap: Ledy Hodgson : 1970 Requested By: AMILCAR BOOTH Order Number: [id number] Reading MD: Hua Adame MD Measurements Intervals [place] Rate: 84 P: 76 NE: 172 QRS: -12 QRSD: 98 T: 47 QT: 373 QTc: 441 Interpretive Statements Sinus rhythm Normal ECG Electronically Signed On 09-08-2018 23:53:40 PST by Hua Adame MD CM:EKGRPT:ELECTROCARDIOGRAM REPORT [id number] AMILCAR BOOTH EPIPHANY DRAFT REPORT AMILCAR BOOTH
[2018-09-02] MEDS ORDERED: 'XANAX1 MG PO (19:39)
[2018-09-02] MEDS ORDERED: ZOLPIDEM TART10 MG PO (19:40)
[2018-09-02 19:47] LABS: BASO % 0.5 % (0.0-1.0); EOS # 0.2 10*3/uL (0.0-0.4); EOS % 2.2 % (1.0-4.0); HEMATOCRIT 44.6 % (37.0-47.0); HEMOGLOBIN 14.5 g/dl (12.0-16.0); LYMPH % 34.9 % (27.0-41.0); MEAN CELL VOLUME 88.3 fl (81.0-99.0); MEAN CORPUSCULAR HGB 28.7 pg (27.0-31.0); MEAN CORPUSCULAR HGB CONC 32.5 g/dl (33.0-37.0); MEAN PLATELET VOLUME 10.4 fl (9.6-12.3); MONO # 0.5 10*3/uL (0.1-1.0); MONO % 5.5 % (3.0-9.0); NEUT # 4.9 10*3/uL (2.3-7.9); NEUT % 56.7 % (47.0-73.0); PLATELET COUNT AUTOMATED 278 10*3/uL (130-400); RED BLOOD COUNT 5.05 10*6/uL (4.10-5.10); RED CELL DISTRI WIDTH 14.9 % (0-14.5); WHITE BLOOD COUNT 8.6 10*3/uL (4.8-10.8)
[2018-09-02 20:01] LABS: ACT PARTIAL THROMBO TIME 25.7 SECONDS (20.8-31.5); INTERNATIONAL NORM RATIO 0.9 (2.0-3.5)
[2018-09-02 20:05] LABS: ALBUMIN 3.7 gm/dl (3.1-4.5); ALKALINE PHOSPHATASE 87 U/L (45-117); BUN 13 mg/dl (7-24); CHLORIDE 104 mmol/L (98-107); CREATININE 1.01 mg/dL (0.55-1.02); POTASSIUM 4.2 mmol/L (3.5-5.1); SGOT/AST 11 IU/L (3-35); SGPT/ALT 19 U/L (12-78); SODIUM 139 mmol/L (136-145); TOTAL PROTEIN 8.1 gm/dL (6.4-8.2)
[2018-09-02 20:11] LABS: TROPONIN I < 0.015 ng/ml (<0.045)
[2018-09-02 21:05] LABS: BILIRUBIN NEGATIVE (NEGATIVE); BLOOD NEGATIVE (NEGATIVE); CLARITY CLEAR (CLEAR); COLOR YELLOW (YELLOW); GLUCOSE NEGATIVE (NEGATIVE); KETONE NEGATIVE (NEGATIVE); LEUKO ESTERASE 1+ (NEGATIVE); NITRITE NEGATIVE (NEGATIVE); PH 6.5 (5.0-9.0); SPECIFIC GRAVITY <= 1.005 (1.005-1.030); UROBILINOGEN 0.2 E.U./dl (0.2-1.0)
[2018-09-02 21:10] LABS: URINE AMPHETAMINES < 1000 (1000ng/ml); URINE BARBITURATES < 200 (200ng/ml); URINE BENZODIAZEPINES < 200 (200ng/ml); URINE CANNABINOIDS (THC) < 50 (50ng/ml); URINE COCAINE < 300 (300ng/ml); URINE METHADONE < 300 (300ng/ml); URINE OPIATES > 300 (300ng/ml)
[2018-09-02 21:18] LABS: URINE PHENCYCLIDINE < 25 (25ng/ml)
[2018-09-02 21:21] LABS: BACTERIA 1+; EPITHELIAL CELLS 25-30
[2018-09-02 21:22] LABS: RBC 0-2 rbc/hpf (0-2)
[2018-09-02 23:00] VITALS: BP 122/82
== END 2018-09-02 23:26 | disposition home or self-care (01) ==
LOC: ED 19:16
PROVIDERS: Emergency Medicine; Nurse Practitioner Family
DX: M54.5 Low back pain (principal); G89.29 Other chronic pain; M54.6 Pain in thoracic spine; I25.10 Atherosclerotic heart disease of native coronary artery without angina pectoris; K21.9 Gastro-esophageal reflux disease without esophagitis; G62.9 Polyneuropathy, unspecified; I11.0 Hypertensive heart disease with heart failure; I50.32 Chronic diastolic (congestive) heart failure; F17.200 Nicotine dependence, unspecified, uncomplicated; Z88.2 Allergy status to sulfonamides; Z88.8 Allergy status to other drugs, medicaments and biological substances; Z79.899 Other long term (current) drug therapy; Z85.118 Personal history of other malignant neoplasm of bronchus and lung

== ENCOUNTER 2019-03-19 22:55 | Inpatient (IN) | payer OTHER ==
[~2019-03-19] VITALS: Ht 162.6 cm; Wt 64.0 kg
--- NOTE | ~2019-03-19 | CON ---
[place], [place] REPORT OF CONSULTATION NAME: BRENNA SOLANO UNIT #: [id number] ROOM: 531 DOCTOR: INDER RUFFIN MD, FACC BIRTHDATE: [birth year] DOS: 03/20/2019 CARDIOLOGY CONSULTATION PRIMARY CARE PHYSICIAN: Jarrett Ortiz M.D. HISTORY OF PRESENT ILLNESS: The patient came in with progressive left chest discomfort, radiating to shoulders and left arm. The patient has history of coronary stenting, not too long ago, because of the acute coronary syndrome, myocardial infarction. The patient has mental status issues. MEDICATIONS: The patient has core measure medication. ALLERGIES: SHE IS ALLERGIC TO SULFA, LIBRAX, FLUOXETINE, IODINE, AND BETADINE. SOCIAL HISTORY: The patient smokes 2 packs a day. REVIEW OF SYSTEMS: GASTROINTESTINAL: Unremarkable. MUSCULOSKELETAL: Unremarkable. Advised the patient quit smoking and the patient continued to have chest pain since being in the hospital and since has coronary intervention not too long ago, since has unstable angina, ____ coronary artery, possible revascularization and optimize the medications at this time. PHYSICAL EXAMINATION: GENERAL: The patient is alert, responding well. Mental status is normal. LUNGS: Bibasilar rhonchi. HEART: S1, S2 regular. ABDOMEN: Soft. No hepatojugular reflux is noted. SKIN: Color is good, not diaphoretic. EXTREMITIES: No cyanosis. RECTAL AND GENITAL: Deferred unrelated. BREASTS: Deferred unrelated. LABORATORY DATA: Glucose is 126, elevated. Troponin is unremarkable. DIAGNOSES: Unstable angina, coronary artery disease, coronary stenting; smoking more than 2 packs a day. PLAN: Coronary artery, possible revascularization. Options, procedures, complications, morbidity, mortality risk is explained. [place], [place] REPORT OF CONSULTATION NAME: BRENNA SOLANO UNIT #: [id number] ROOM: 531 DOCTOR: INDER RUFFIN MD, FACC BIRTHDATE: [birth year] INDER RUFFIN MD CM:CONSTR:REPORT OF CONSULTATION 1731 03/22/19 2023 interface
--- NOTE | ~2019-03-19 | EKG ---
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 EPIPHANY DRAFT REPORT INDER RUFFIN MD [facility]
--- NOTE | ~2019-03-19 | EKG ---
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1970 Requested By: JENNI LANG Order Number: [id number] Reading MD: Tom Brumfield MD Measurements Intervals [place] Rate: 88 P: 81 [place]: 159 QRS: 40 QRSD: 106 T: 64 QT: 366 QTc: 443 Interpretive Statements Sinus rhythm RSR' in V1 or V2, right VCD or RVH Inferior infarct, old Baseline wander in lead(s) V2 Compared to ECG 09/02/2018 19:48:04 Right ventricular hypertrophy now present RSR' in V1 or V2 now present Myocardial infarct finding now present Electronically Signed On 03-21-2019 13:49:09 PDT by Tom Brumfield MD CM:EKGRPT:ELECTROCARDIOGRAM REPORT 2300 1349 JENNI BEATTY DRAFT REPORT JENNI LANG DO
--- NOTE | ~2019-03-19 | EKG ---
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1970 Requested By: INDER RUFFIN Order Number: [id number] Reading MD: Tom Brumfield MD Measurements Intervals [place] Rate: 84 P: 76 [place]: 165 QRS: -6 QRSD: 96 T: 64 QT: 371 QTc: 439 Interpretive Statements Sinus rhythm Probable left atrial enlargement RSR' in V1 or V2, right VCD Compared to ECG 09/02/2018 19:48:04 Right ventricular hypertrophy now present RSR' in V1 or V2 now present Electronically Signed On 03-21-2019 13:51:17 PDT by Tom Brumfield MD CM:EKGRPT:ELECTROCARDIOGRAM REPORT 1413 1351 INDER RUFFIN MD [facility] EPIPHANY DRAFT REPORT INDER RUFFIN MD [facility]
--- NOTE | ~2019-03-19 | EKG ---
[place], [place] ELECTROCARDIOGRAM REPORT NAME: BRENNA SOLANO UNIT #: [id number] ROOM: 531 DOCTOR: EPIPHANY DRAFT REPORT BIRTHDATE: [address] 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
--- NOTE | ~2019-03-19 | EKG ---
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
--- NOTE | ~2019-03-19 | EKG ---
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
[~2019-03-19 22:55] MED LIST changes: +'XANAX1 MG PO; +ZOLPIDEM TART10 MG PO
[2019-03-19] MEDS ORDERED: QUETIAPINE FUMA50 M1 PO (23:02)
[2019-03-19 23:08] VITALS: BP 117/71
[2019-03-19 23:29] LABS: BASO # 0.1 10*3/uL (0.0-0.1); EOS # 0.1 10*3/uL (0.0-0.4); EOS % 1.2 % (1.0-4.0); HEMATOCRIT 43.7 % (37.0-47.0); HEMOGLOBIN 14.1 g/dl (12.0-16.0); LYMPH # 1.4 10*3/uL (1.3-4.4); LYMPH % 15.3 % (27.0-41.0); MEAN CELL VOLUME 90.9 fl (81.0-99.0); MEAN CORPUSCULAR HGB 29.3 pg (27.0-31.0); MEAN CORPUSCULAR HGB CONC 32.3 g/dl (33.0-37.0); MEAN PLATELET VOLUME 10.5 fl (9.6-12.3); MONO # 0.5 10*3/uL (0.1-1.0); MONO % 5.5 % (3.0-9.0); NEUT # 7.1 10*3/uL (2.3-7.9); NEUT % 76.6 % (47.0-73.0); PLATELET COUNT AUTOMATED 226 10*3/uL (130-400); RED BLOOD COUNT 4.81 10*6/uL (4.10-5.10); RED CELL DISTRI WIDTH 13.6 % (0-14.5); WHITE BLOOD COUNT 9.2 10*3/uL (4.8-10.8)
[2019-03-19 23:40] LABS: ACT PARTIAL THROMBO TIME 26.8 SECONDS (20.0-32.1); INTERNATIONAL NORM RATIO 0.9 (2.0-3.5)
[2019-03-19 23:42] VITALS: BP 116/68
[2019-03-19 23:50] LABS: ALBUMIN 3.9 gm/dl (3.1-4.5); ALKALINE PHOSPHATASE 104 U/L (45-117); BUN 15 mg/dl (7-24); CHLORIDE 104 mmol/L (98-107); CREATININE 0.95 mg/dL (0.55-1.02); POTASSIUM 4.1 mmol/L (3.5-5.1); SGOT/AST 14 IU/L (3-35); SGPT/ALT 19 U/L (12-78); SODIUM 134 mmol/L (136-145); TOTAL PROTEIN 9.2 gm/dL (6.4-8.2)
[2019-03-19 23:54] LABS: TROPONIN I < 0.015 ng/ml (<0.045)
[2019-03-20 00:50] VITALS: BP 112/61
[2019-03-20 05:50] LABS: ALBUMIN 3.3 gm/dl (3.1-4.5); BUN 16 mg/dl (7-24); CHLORIDE 101 mmol/L (98-107); CHOLESTEROL 201 mg/dL (<200); CREATININE 0.98 mg/dL (0.55-1.02); PHOSPHOROUS 4.1 mg/dL (2.5-4.9); SGOT/AST 11 IU/L (3-35); SGPT/ALT 14 U/L (12-78); SODIUM 132 mmol/L (136-145); TRIGLYCERIDES 172 mg/dl (<150); VLDL CHOLESTEROL 34 mg/dL (6-40)
[2019-03-20 05:57] LABS: ALKALINE PHOSPHATASE 86 U/L (45-117); FREE T4 1.46 ng/dl (0.76-1.46); HDL CHOLESTEROL 30 mg/dl (40-60); LDL CHOLESTEROL 137 mg/dL (9-159); THYROID STIM HORMONE (HS) 0.414 uIU/ml (0.358-4.75)
[2019-03-20 06:12] LABS: BASO # 0.1 10*3/uL (0.0-0.1); BASO % 1.2 % (0.0-1.0); EOS # 0.2 10*3/uL (0.0-0.4); EOS % 2.7 % (1.0-4.0); HEMATOCRIT 40.4 % (37.0-47.0); HEMOGLOBIN 13.1 g/dl (12.0-16.0); LYMPH % 30.1 % (27.0-41.0); MEAN CELL VOLUME 90.2 fl (81.0-99.0); MEAN CORPUSCULAR HGB 29.2 pg (27.0-31.0); MEAN CORPUSCULAR HGB CONC 32.4 g/dl (33.0-37.0); MEAN PLATELET VOLUME 11.4 fl (9.6-12.3); MONO # 0.5 10*3/uL (0.1-1.0); MONO % 7.2 % (3.0-9.0); NEUT # 3.9 10*3/uL (2.3-7.9); NEUT % 58.7 % (47.0-73.0); PLATELET COUNT AUTOMATED 208 10*3/uL (130-400); RED BLOOD COUNT 4.48 10*6/uL (4.10-5.10); RED CELL DISTRI WIDTH 13.7 % (0-14.5); WHITE BLOOD COUNT 6.7 10*3/uL (4.8-10.8)
[2019-03-20 06:32] LABS: ACT PARTIAL THROMBO TIME 32.3 SECONDS (20.0-32.1); INTERNATIONAL NORM RATIO 0.9 (2.0-3.5)
[2019-03-20 07:04] LABS: VITAMIN D, 25-HYDROXY 24.5 ng/mL (30-100)
[2019-03-20 08:07] VITALS: BP 92/58
[2019-03-20 12:00] VITALS: BP 109/66
[2019-03-20 16:00] VITALS: BP 137/77
== END 2019-03-20 21:09 | disposition short-term general hospital (02) | DRG 303 ==
LOC: ED 22:55 → EDHOLD 03-20 00:03 → 5E 03-20 00:03
PROVIDERS: Internal Medicine; Student in an Organized Health Care Education/Training Program; ADMIT Emergency Medicine
DX: I25.118 Atherosclerotic heart disease of native coronary artery with other forms of angina pectoris (principal); I50.32 Chronic diastolic (congestive) heart failure; I11.0 Hypertensive heart disease with heart failure; K21.9 Gastro-esophageal reflux disease without esophagitis; F41.1 Generalized anxiety disorder; J44.9 Chronic obstructive pulmonary disease, unspecified; B19.20 Unspecified viral hepatitis C without hepatic coma; K70.30 Alcoholic cirrhosis of liver without ascites; G89.29 Other chronic pain; E78.5 Hyperlipidemia, unspecified; F32.9 Major depressive disorder, single episode, unspecified; Z66 Do not resuscitate; Z51.5 Encounter for palliative care; G62.9 Polyneuropathy, unspecified; E78.00 Pure hypercholesterolemia, unspecified; F17.210 Nicotine dependence, cigarettes, uncomplicated; I25.2 Old myocardial infarction; Z95.5 Presence of coronary angioplasty implant and graft; Z88.2 Allergy status to sulfonamides; Z88.8 Allergy status to other drugs, medicaments and biological substances; Z91.09 Other allergy status, other than to drugs and biological substances; Z90.710 Acquired absence of both cervix and uterus; Z90.722 Acquired absence of ovaries, bilateral; Z98.51 Tubal ligation status; Z82.49 Family history of ischemic heart disease and other diseases of the circulatory system; Z83.3 Family history of diabetes mellitus; Z80.8 Family history of malignant neoplasm of other organs or systems; Z87.01 Personal history of pneumonia (recurrent); Z79.82 Long term (current) use of aspirin; Z79.899 Other long term (current) drug therapy; Z79.02 Long term (current) use of antithrombotics/antiplatelets

== ENCOUNTER 2019-06-10 00:43 | Emergency (ER) | payer OTHER ==
[~2019-06-10] VITALS: Ht 167.6 cm; Wt 72.6 kg
[~2019-06-10 00:43] MED LIST changes: +QUETIAPINE FUMA50 M1 PO
[2019-06-10 00:47] VITALS: BP 186/97
[2019-06-10] MEDS ORDERED: AUGMENTIN 875875 MG PO (01:29)
== END 2019-06-10 02:06 | disposition home or self-care (01) ==
LOC: ED 00:43
DX: S41.152A Open bite of left upper arm, initial encounter (principal); J44.9 Chronic obstructive pulmonary disease, unspecified; F17.210 Nicotine dependence, cigarettes, uncomplicated; Z95.5 Presence of coronary angioplasty implant and graft; Z98.51 Tubal ligation status; Z79.82 Long term (current) use of aspirin; Z79.899 Other long term (current) drug therapy; Z88.2 Allergy status to sulfonamides; Z88.8 Allergy status to other drugs, medicaments and biological substances; Y04.1XXA Assault by human bite, initial encounter; Y93.89 Activity, other specified; Y92.89 Other specified places as the place of occurrence of the external cause; Y99.9 Unspecified external cause status

== ENCOUNTER 2019-10-24 10:54 | Emergency (ER) | payer OTHER ==
[~2019-10-24 10:54] MED LIST changes: +AUGMENTIN 875875 MG PO
[2019-10-24 11:03] VITALS: BP 135/67
[2019-10-24] MEDS ORDERED: PREDNISONE50 MG PO (13:22)
[2019-10-24] MEDS ORDERED: ZITHROMAX250 MG PO (13:22)
[2019-10-24] MEDS ORDERED: DOXYCYCLINE100 M3 PO (13:22)
[2019-10-24] MEDS ORDERED: GUAIFENESIN AC473 M1 PO (13:22)
== END 2019-10-24 13:27 | disposition left against medical advice (07) ==
LOC: ED 10:54
DX: J18.9 Pneumonia, unspecified organism (principal); G89.29 Other chronic pain; G43.909 Migraine, unspecified, not intractable, without status migrainosus; I25.10 Atherosclerotic heart disease of native coronary artery without angina pectoris; I25.2 Old myocardial infarction; I11.0 Hypertensive heart disease with heart failure; I50.9 Heart failure, unspecified; F17.210 Nicotine dependence, cigarettes, uncomplicated; Z88.8 Allergy status to other drugs, medicaments and biological substances; Z91.041 Radiographic dye allergy status; Z88.1 Allergy status to other antibiotic agents; Z91.048 Other nonmedicinal substance allergy status; Z79.2 Long term (current) use of antibiotics; Z79.899 Other long term (current) drug therapy; Z79.82 Long term (current) use of aspirin; J44.9 Chronic obstructive pulmonary disease, unspecified; Z98.61 Coronary angioplasty status; Z90.710 Acquired absence of both cervix and uterus

== ENCOUNTER 2020-03-15 11:47 | Emergency (ER) | payer OTHER ==
[~2020-03-15] VITALS: Wt 64.9 kg
[~2020-03-15 11:47] MED LIST changes: +DOXYCYCLINE100 M3 PO; +GUAIFENESIN AC473 M1 PO; +PREDNISONE50 MG PO; +ZITHROMAX250 MG PO
[2020-03-15 12:45] VITALS: BP 153/96
[2020-03-15 14:26] LABS: BASO # 0.1 10*3/uL (0.0-0.1); BASO % 0.7 % (0.0-1.0); EOS # 0.1 10*3/uL (0.0-0.4); HEMATOCRIT 40.6 % (37.0-47.0); LYMPH # 1.8 10*3/uL (1.3-4.4); MEAN CORPUSCULAR HGB 28.9 pg (27.0-31.0); MEAN CORPUSCULAR HGB CONC 32.5 g/dl (33.0-37.0); MEAN PLATELET VOLUME 10.7 fl (9.6-12.3); MONO # 0.4 10*3/uL (0.1-1.0); MONO % 5.4 % (3.0-9.0); NEUT # 4.7 10*3/uL (2.3-7.9); NEUT % 66.8 % (47.0-73.0); PLATELET COUNT AUTOMATED 251 10*3/uL (130-400); RED BLOOD COUNT 4.56 10*6/uL (4.10-5.10); RED CELL DISTRI WIDTH 14.7 % (0-14.5)
[2020-03-15 14:40] LABS: ALBUMIN 3.9 gm/dl (3.1-4.5); ALKALINE PHOSPHATASE 91 U/L (45-117); BUN 19 mg/dl (7-24); CHLORIDE 107 mmol/L (98-107); CREATININE 1.09 mg/dL (0.55-1.02); SGOT/AST 20 IU/L (3-35); SGPT/ALT 22 U/L (12-78); SODIUM 139 mmol/L (136-145)
== END 2020-03-15 15:22 | disposition left against medical advice (07) ==
LOC: ED 11:47
PROVIDERS: Nurse Practitioner Family
DX: R07.89 Other chest pain (principal); I10 Essential (primary) hypertension; R56.9 Unspecified convulsions; F32.9 Major depressive disorder, single episode, unspecified; G43.909 Migraine, unspecified, not intractable, without status migrainosus; F17.200 Nicotine dependence, unspecified, uncomplicated; Z88.8 Allergy status to other drugs, medicaments and biological substances; Z88.2 Allergy status to sulfonamides; Z91.013 Allergy to seafood; Z79.899 Other long term (current) drug therapy; Z79.82 Long term (current) use of aspirin

== ENCOUNTER → 2020-04-30 | Outpatient (CLI) | payer OTHER ==
[2020-04-30 09:54] LABS: BASO # 0.1 10*3/uL (0.0-0.1); BASO % 0.8 % (0.0-1.0); EOS # 0.3 10*3/uL (0.0-0.4); EOS % 2.9 % (1.0-4.0); HEMATOCRIT 43.3 % (37.0-47.0); LYMPH # 2.3 10*3/uL (1.3-4.4); LYMPH % 25.6 % (27.0-41.0); MEAN CELL VOLUME 91.4 fl (81.0-99.0); MEAN CORPUSCULAR HGB 29.3 pg (27.0-31.0); MEAN CORPUSCULAR HGB CONC 32.1 g/dl (33.0-37.0); MEAN PLATELET VOLUME 10.7 fl (9.6-12.3); MONO # 0.5 10*3/uL (0.1-1.0); MONO % 5.5 % (3.0-9.0); NEUT # 5.9 10*3/uL (2.3-7.9); PLATELET COUNT AUTOMATED 268 10*3/uL (130-400); RED BLOOD COUNT 4.74 10*6/uL (4.10-5.10); RED CELL DISTRI WIDTH 14.6 % (0-14.5)
[2020-04-30 10:01] LABS: BILIRUBIN NEGATIVE; CLARITY CLEAR (CLEAR); COLOR YELLOW (YELLOW); GLUCOSE NEGATIVE; KETONE NEGATIVE
[2020-04-30 10:02] LABS: BLOOD NEGATIVE (NEGATIVE); SPECIFIC GRAVITY < 1.005 (1.001-1.030)
[2020-04-30 10:03] LABS: LEUKO ESTERASE NEGATIVE (NEGATIVE); NITRITE NEGATIVE (NEGATIVE); UROBILINOGEN 0.2 E.U./dl (0.0-1.0)
[2020-04-30 10:19] LABS: EPITHELIAL CELLS 0-2; WBC 0-2 wbc/hpf (0-5)
[2020-04-30 10:23] LABS: ALBUMIN 3.7 gm/dl (3.1-4.5); ALKALINE PHOSPHATASE 100 U/L (45-117); BUN 15 mg/dl (7-24); CHLORIDE 100 mmol/L (98-107); CHOLESTEROL 191 mg/dL (<200); CREATININE 0.94 mg/dL (0.55-1.02); HDL CHOLESTEROL 37 mg/dl (40-60); LDL CHOLESTEROL 113 mg/dL (9-159); POTASSIUM 4.7 mmol/L (3.5-5.1); SGOT/AST 14 IU/L (3-35); SGPT/ALT 22 U/L (12-78); SODIUM 135 mmol/L (136-145); TOTAL PROTEIN 8.9 gm/dL (6.4-8.2); TRIGLYCERIDES 207 mg/dl (<150); VLDL CHOLESTEROL 41 mg/dL (6-40)
== END | disposition home or self-care (01) ==
LOC: CANSCHCLI → CT 04-15 13:00 → LAB 08:59 → CT 09:00
PROVIDERS: ATTEND Nurse Practitioner Primary Care
DX: J98.11 Atelectasis (principal); E04.1 Nontoxic single thyroid nodule; I10 Essential (primary) hypertension; R07.89 Other chest pain; R91.8 Other nonspecific abnormal finding of lung field; E78.2 Mixed hyperlipidemia; E55.9 Vitamin D deficiency, unspecified; R35.0 Frequency of micturition

== ENCOUNTER 2020-06-16 14:07 | Emergency (ER) | payer OTHER ==
[~2020-06-16] VITALS: Ht 160 cm; Wt 68.0 kg
[2020-06-16 14:34] LABS: BASO # 0.1 10*3/uL (0.0-0.1); BASO % 1.1 % (0.0-1.0); EOS % 0.7 % (1.0-4.0); LYMPH # 1.3 10*3/uL (1.3-4.4); LYMPH % 24.4 % (27.0-41.0); MEAN CELL VOLUME 88.6 fl (81.0-99.0); MEAN CORPUSCULAR HGB 29.1 pg (27.0-31.0); MEAN CORPUSCULAR HGB CONC 32.9 g/dl (33.0-37.0); MEAN PLATELET VOLUME 10.1 fl (9.6-12.3); MONO # 0.2 10*3/uL (0.1-1.0); NEUT # 3.8 10*3/uL (2.3-7.9); NEUT % 69.4 % (47.0-73.0); PLATELET COUNT AUTOMATED 282 10*3/uL (130-400); RED BLOOD COUNT 4.74 10*6/uL (4.10-5.10); RED CELL DISTRI WIDTH 13.7 % (0-14.5); WHITE BLOOD COUNT 5.5 10*3/uL (4.8-10.8)
[2020-06-16 14:46] LABS: ACT PARTIAL THROMBO TIME 29.9 SECONDS (20.0-32.1)
[2020-06-16 14:59] LABS: ALBUMIN 3.7 gm/dl (3.1-4.5); ALKALINE PHOSPHATASE 94 U/L (45-117); BUN 10 mg/dl (7-24); CHLORIDE 109 mmol/L (98-107); CREATININE 1.03 mg/dL (0.55-1.02); POTASSIUM 3.9 mmol/L (3.5-5.1); SGOT/AST 15 IU/L (3-35); SGPT/ALT 21 U/L (12-78); SODIUM 138 mmol/L (136-145); TOTAL PROTEIN 8.7 gm/dL (6.4-8.2)
[2020-06-16 15:05] LABS: TROPONIN I < 0.015 ng/ml (<0.045)
[2020-06-16 15:34] VITALS: BP 154/82
== END 2020-06-16 16:40 | disposition left against medical advice (07) ==
LOC: ED 14:07
PROVIDERS: Emergency Medicine
DX: R07.89 Other chest pain (principal); F17.210 Nicotine dependence, cigarettes, uncomplicated; Z88.8 Allergy status to other drugs, medicaments and biological substances; Z88.2 Allergy status to sulfonamides; Z91.013 Allergy to seafood; Z79.899 Other long term (current) drug therapy; Z79.82 Long term (current) use of aspirin

== ENCOUNTER → 2020-09-26 | Outpatient (CLI) | payer OTHER ==
[~2020-09-26] MED LIST changes: +CLEOCIN HCL150 MG PO; +IBU800 MG PO
[2020-09-26 13:24] LABS: BASO % 0.6 % (0.0-1.0); EOS # 0.1 10*3/uL (0.0-0.4); EOS % 2.6 % (1.0-4.0); HEMATOCRIT 38.4 % (37.0-47.0); LYMPH # 1.9 10*3/uL (1.3-4.4); LYMPH % 34.5 % (27.0-41.0); MEAN CELL VOLUME 90.4 fl (81.0-99.0); MEAN CORPUSCULAR HGB 29.2 pg (27.0-31.0); MEAN CORPUSCULAR HGB CONC 32.3 g/dl (33.0-37.0); MEAN PLATELET VOLUME 11.8 fl (9.6-12.3); MONO # 0.4 10*3/uL (0.1-1.0); MONO % 7.8 % (3.0-9.0); NEUT # 2.9 10*3/uL (2.3-7.9); NEUT % 54.3 % (47.0-73.0); PLATELET COUNT AUTOMATED 179 10*3/uL (130-400); RED BLOOD COUNT 4.25 10*6/uL (4.10-5.10); RED CELL DISTRI WIDTH 14.1 % (0-14.5); WHITE BLOOD COUNT 5.4 10*3/uL (4.8-10.8)
[2020-09-26 13:54] LABS: ALBUMIN 3.3 gm/dl (3.1-4.5); ALKALINE PHOSPHATASE 119 U/L (45-117); BUN 26 mg/dl (7-24); CHLORIDE 106 mmol/L (98-107); CREATININE 1.03 mg/dL (0.55-1.02); IRON 59 ug/dL (50-170); POTASSIUM 4.4 mmol/L (3.5-5.1); SGOT/AST 16 IU/L (3-35); SGPT/ALT 26 U/L (12-78); SODIUM 137 mmol/L (136-145); TOTAL IRON BINDING CAPACITY 317 ug/dl (250-450); TOTAL PROTEIN 7.6 gm/dL (6.4-8.2)
== END | disposition home or self-care (01) ==
LOC: LAB 12:25
PROVIDERS: ATTEND Nurse Practitioner Primary Care
DX: I95.0 Idiopathic hypotension (principal); R53.83 Other fatigue

== ENCOUNTER 2020-11-17 17:40 | Emergency (ER) | payer OTHER ==
[~2020-11-17] VITALS: Ht 162.5 cm; Wt 68.9 kg
[~2020-11-17 17:40] MED LIST changes: -CLEOCIN HCL150 MG PO; -IBU800 MG PO
[2020-11-17 17:48] VITALS: BP 134/92
[2020-11-17] MEDS ORDERED: IBU800 MG PO (17:59)
[2020-11-17] MEDS ORDERED: CLEOCIN HCL150 MG PO (17:59)
== END 2020-11-17 18:30 | disposition home or self-care (01) ==
LOC: ED 17:40
DX: K04.7 Periapical abscess without sinus (principal); J44.9 Chronic obstructive pulmonary disease, unspecified; F17.210 Nicotine dependence, cigarettes, uncomplicated; Z88.8 Allergy status to other drugs, medicaments and biological substances; Z91.041 Radiographic dye allergy status; Z88.2 Allergy status to sulfonamides; Z88.1 Allergy status to other antibiotic agents; Z91.048 Other nonmedicinal substance allergy status; Z91.013 Allergy to seafood; Z79.2 Long term (current) use of antibiotics; Z79.899 Other long term (current) drug therapy; Z79.82 Long term (current) use of aspirin; Z98.61 Coronary angioplasty status; Z90.710 Acquired absence of both cervix and uterus; Z98.51 Tubal ligation status

== ENCOUNTER 2022-05-29 15:38 | Emergency (ER) | payer OTHER ==
[~2022-05-29] VITALS: Ht 160 cm; Wt 77.1 kg
[~2022-05-29 15:38] MED LIST changes: +CLEOCIN HCL150 MG PO; +IBU800 MG PO
[2022-05-29 16:03] VITALS: BP 120/58
== END 2022-05-29 17:54 | disposition left against medical advice (07) ==
LOC: ED 15:38
DX: R09.89 Other specified symptoms and signs involving the circulatory and respiratory systems (principal); Z53.21 Procedure and treatment not carried out due to patient leaving prior to being seen by health care provider

== ENCOUNTER 2022-10-23 09:28 | Emergency (ER) | payer OTHER ==
[~2022-10-23] VITALS: Ht 162.5 cm; Wt 80.7 kg
[2022-10-23 09:45] VITALS: BP 130/78
[2022-10-23] MEDS ORDERED: OXYCODONE HCL5 M1 PO (11:18)
[2022-10-23] MEDS ORDERED: CLEOCIN HCL150 MG PO (11:18)
== END 2022-10-23 11:30 | disposition home or self-care (01) ==
LOC: ED 09:28
DX: L03.113 Cellulitis of right upper limb (principal); M25.551 Pain in right hip; K08.89 Other specified disorders of teeth and supporting structures; F17.210 Nicotine dependence, cigarettes, uncomplicated; Z98.51 Tubal ligation status; Z90.710 Acquired absence of both cervix and uterus; Z98.890 Other specified postprocedural states; Z79.899 Other long term (current) drug therapy; Z79.82 Long term (current) use of aspirin; Z88.2 Allergy status to sulfonamides; Z88.1 Allergy status to other antibiotic agents; Z91.013 Allergy to seafood; Z88.8 Allergy status to other drugs, medicaments and biological substances

== ENCOUNTER 2022-11-28 07:38 | Emergency (ER) | payer OTHER ==
[~2022-11-28] VITALS: Ht 162.5 cm; Wt 77.1 kg
[~2022-11-28 07:38] MED LIST changes: +OXYCODONE HCL5 M1 PO
[2022-11-28 07:40] VITALS: BP 132/86
== END 2022-11-28 08:46 | disposition home or self-care (01) ==
LOC: ED 07:38
DX: M25.551 Pain in right hip (principal); M79.89 Other specified soft tissue disorders; I10 Essential (primary) hypertension; F32.A Depression, unspecified; G43.909 Migraine, unspecified, not intractable, without status migrainosus; Z87.442 Personal history of urinary calculi; I50.9 Heart failure, unspecified; G62.9 Polyneuropathy, unspecified; Z91.041 Radiographic dye allergy status; Z88.2 Allergy status to sulfonamides; Z88.6 Allergy status to analgesic agent; Z88.1 Allergy status to other antibiotic agents; Z88.8 Allergy status to other drugs, medicaments and biological substances; Z91.013 Allergy to seafood; J44.9 Chronic obstructive pulmonary disease, unspecified; Z90.710 Acquired absence of both cervix and uterus; Z98.890 Other specified postprocedural states; Z98.51 Tubal ligation status; Z90.11 Acquired absence of right breast and nipple; F17.210 Nicotine dependence, cigarettes, uncomplicated; F10.10 Alcohol abuse, uncomplicated